=== PATIENT | female | born 1990 | race Native Hawaiian/Other Pacific Islander ===

== ENCOUNTER 2016-11-09 21:04 | Emergency (ER) | payer BC ==
--- NOTE | 2016-11-09 21:48 | ED PDOC ---
HPI: Trauma/Fall - HPI Time Seen by Provider: 11/09/16 21:13 Chief Complaint (Nursing): Trauma Chief Complaint (Provider): Head trauma History Per: Patient History/Exam Limitations: no limitations Associated Symptoms: denies: Dizziness, LOC Additional Complaint(s): Ana Laura Vincent, a 25 year old female, presents to the ED with head trauma. The patient reports that last night she was drinking and as a result fell and hit the back of her head. One of her friends who witnessed the fall stated that she hit her head very hard. Patient states she vomited once this morning.Denies LOC , change in mentation. Also denies changes in speech, thought process and gait. Past Medical History Reviewed: Historical Data, Nursing Documentation, Vital Signs Vital Signs: Last Vital Signs Temp 98.1 F 11/09/16 21:10 Pulse 83 11/09/16 21:10 Resp 16 11/09/16 21:10 BP 124/73 11/09/16 21:10 Pulse Ox 96 11/09/16 21:10 - Medical History PMH: No Chronic Diseases - Family History Family History: States: Unknown Family Hx - Home Medications Home Medications: Ambulatory Orders Medication Instructions Recorded No Known Home Med 11/09/16 - Allergies Allergies/Adverse Reactions: Allergies Allergy/AdvReac Type Severity Reaction Status Date / Time No Known Allergies Allergy Verified 11/09/16 21:51 Review of Systems Gastrointestinal: Positive for: Vomiting (x1 this morning) Neurological: Negative for: Change in Speech (Denies change in speech, thought process and gait.), Headache, Dizziness Physical Exam - Reviewed Nursing Documentation Reviewed: Yes Vital Signs Reviewed: Yes - Physical Exam Appears: Positive for: Non-toxic, No Acute Distress Head Exam: Positive for: ATRAUMATIC, NORMAL INSPECTION, NORMOCEPHALIC Eye Exam: Positive for: Normal appearance, EOMI, PERRL Cardiovascular/Chest: Positive for: Regular Rate, Rhythm, Chest Non Tender. Negative for: Tachycardia Respiratory: Positive for: Normal Breath Sounds. Negative for: Wheezing, Respiratory Distress Neurologic/Psych: Positive for: Alert, Oriented, Cerebellar Tests (Cerebellar tests are normal.), Gait Medical Decision Making Medical Decision Makin:13 Initial Impression: 25 year old female presenting with head trauma Initial Plan: * Upreg * CT head w/o contrast * Reevaluation 21:45 Patient was advised that she does not need a CT scan due to benign results of her physical exam but patient insists on having one done. Patient was made aware of the risks of radiation exposure. CT head: NAD advised to monitor for neruo deficits and to return to ED if noted. stable appearing and stable VS Scribe Attestation Documented by Meenu Aparicio acting as a scribe for Ariella Roy PA-C. Scribe Attestation All medical record entries made by the Scribe were at my direction and personally dictated by me. I have reviewed the chart and agree that the record accurately reflects my personal performance of the history, physical exam, medical decision making, and the department course for this patient. I have also personally directed, reviewed, and agree with the discharge instructions and disposition. Disposition - Clinical Impression Clinical Impression: Head injury - Patient ED Disposition Is Patient to be Admitted: No Counseled Patient/Family Regarding: Studies Performed, Diagnosis, Need For Followup - Disposition Referrals: [facility] [Outside] Disposition: Routine/Home Disposition Time: 21:13 Condition: STABLE Instructions: Head Injury (ED) Forms: [facility] ED School/Work Excuse
[2016-11-09 22:02] VITALS: BP 124/73; PULSE 83; RESP 16; TEMP 98.1; O2SAT 96
--- NOTE | 2016-11-09 22:39 | CT ---
EXAM: CT Head Without Intravenous Contrast CLINICAL HISTORY: 25 years old, female; Injury or trauma; Fall; Initial encounter; Laceration; Consciousness not specified; Without residual foreign body; Head, generalized; Injury date: Today; Injury details: S/P tripped and falling. ETOH; Additional info: Head injury with ETOH TECHNIQUE: Axial computed tomography images of the head/brain without intravenous contrast. This CT exam was performed using one or more of the following dose reduction techniques: automated exposure control, adjustment of the mA and/or kV according to patient size, and/or use of iterative reconstruction technique. Coronal and sagittal reformatted images were created and reviewed. COMPARISON: No relevant prior studies available. FINDINGS: Brain: No intracranial hemorrhage. No mass. No edema. Ventricles: No hydrocephalus. Bones/joints: No acute fracture. Soft tissues: Unremarkable. Sinuses: No acute sinusitis. Mastoid air cells: No mastoid effusion. Orbits: Unremarkable as visualized. IMPRESSION: 1. No intracranial hemorrhage. 2. Incidental/non-acute findings are described above.
== END 2016-11-09 22:45 | disposition home or self-care (01) ==
LOC: H.ER 21:04
DX: S09.90XA Unspecified injury of head, initial encounter (principal); W01.0XXA Fall on same level from slipping, tripping and stumbling without subsequent striking against object, initial encounter; Y92.89 Other specified places as the place of occurrence of the external cause